=== PATIENT | male | born 1950 | race Caucasian/White ===

== ENCOUNTER 2018-01-10 06:39 | Inpatient (IN) | payer MEDICARE, OTHER ==
[2018-01-10] MEDS: CEFEPIME 2GM/50 ML (PMX) 50 ML IVPB (06:45)
[2018-01-10 07:15] LABS: ADD MAN DIFF? NO
[2018-01-10 07:27] LABS: WHITE BLOOD COUNT 16.2 10^3/ul (4.8-10.8)
[2018-01-10 07:27] LABS: BASOPHILS % 0.2 % (0.0-2.0); EOSINOPHILS % 0.1 % (0.0-7.0); HEMATOCRIT 50.1 % (42.0-52.0); HEMOGLOBIN 15.3 g/dl (14.0-18.0); LYMPHOCYTES # 3.4 10^3/ul (0.8-2.9); LYMPHOCYTES % 20.8 % (15.0-51.0); MEAN CORPUSCULAR HEMOGLOBIN 28.9 pg (29.0-33.0); MEAN CORPUSCULAR HGB CONC 30.5 g/dl (32.0-37.0); MEAN CORPUSCULAR VOLUME 94.5 fl (82.0-101.0); MEAN PLATELET VOLUME 12.3 fl (7.4-10.4); MONOCYTE # 1.5 10^3/ul (0.3-0.9); MONOCYTES % 8.9 % (0.0-11.0); NEUTROPHIL # 11.3 10^3/ul (1.6-7.5); NEUTROPHILS % 69.6 % (39.0-77.0); PLATELET COUNT 246 10^3/UL (140-415); RED CELL DISTRIBUTION WIDTH 16.5 % (11.5-14.5)
[2018-01-10 07:38] LABS: ALANINE AMINOTRANSFERASE 88 IU/L (13-69); ALBUMIN 3.7 g/dl (3.3-4.9); ALBUMIN/GLOBULIN RATIO 0.94; ALKALINE PHOSPHATASE 81 IU/L (42-121); ANION GAP 12 (8-16); ASPARTATE AMINO TRANSFERASE 86 IU/L (15-46); BLOOD UREA NITROGEN 15 mg/dl (7-20); CALCIUM 8.9 mg/dl (8.4-10.2); CARBON DIOXIDE 36 mmol/L (21-31); CHLORIDE 103 mmol/L (97-110); CREATININE 1.06 mg/dl (0.61-1.24); GLUCOSE 137 mg/dl (70-220); POTASSIUM 5.2 mmol/L (3.5-5.1); SODIUM 146 mmol/L (135-144); TOTAL PROTEIN 7.6 g/dl (6.1-8.1)
[2018-01-10 07:39] LABS: INR 0.94; PROTIME 12.7 Sec (11.9-14.9)
[2018-01-10 07:40] LABS: PARTIAL THROMBOPLASTIN TIME 28.5 Sec (25.0-35.0)
[2018-01-10] MEDS: SODIUM CHLORIDE 0.9% 1L BAG IV* (07:41)
[2018-01-10] MEDS: VANCOMYCIN 1 GM (PMX) 250 ML IVPB (07:41)
[2018-01-10 07:46] LABS: LACTIC ACID 2.1 mmol/L (0.5-2.0)
[2018-01-10 07:58] LABS: TROPONIN-I < 0.012 ng/ml (0.00-0.12)
[2018-01-10] MEDS ORDERED: ONDANSETRON 4 MG INJ IV (08:30)
[2018-01-10] MEDS ORDERED: ACETAMINOPHEN 325 MG TAB PO (08:30)
[2018-01-10] MEDS: morphine 4 MG/ML VIAL IV (08:47)
[2018-01-10] MEDS: ONDANSETRON 4 MG INJ IV (08:47)
[2018-01-10 11:00] LABS: LACTIC ACID 1.9 mmol/L (0.5-2.0)
[2018-01-10] MEDS: LORAZEPAM 2 MG INJ IV (11:00)
[2018-01-10 11:30] LABS: LACTIC ACID 1.8 mmol/L (0.5-2.0)
[2018-01-10 13:18] LABS: VALPROATE 60 ug/ml (50-100)
[2018-01-10] MEDS ORDERED: SCOPOLAMINE 1.5 MG PATCH TRANSDERM (19:30)
[2018-01-10] MEDS: morphine (DRIP) 100 MG/100 ML 100 ML IV (20:03)
[2018-01-10] MEDS: GLYCOPYRROLATE 0.4 MG INJ IV (22:12)
== END 2018-01-11 05:50 | disposition expired | DRG 871 ==
LOC: E/R 06:39 → PP2 08:15
DX: A41.9 Sepsis, unspecified organism (principal); J18.9 Pneumonia, unspecified organism; K74.60 Unspecified cirrhosis of liver; R13.10 Dysphagia, unspecified; R65.20 Severe sepsis without septic shock; Z66 Do not resuscitate; I10 Essential (primary) hypertension; E55.9 Vitamin D deficiency, unspecified
CPT/HCPCS: 70450; 71045; 80053; 80164; 83605; 84484; 85025; 85610; 85730; 87040; 93005; 96374; 96375; 99291-25